=== PATIENT | female | born 1940 | race Caucasian/White ===

== ENCOUNTER 2019-10-31 11:21 | Day surgery (SDC) | payer MEDICARE ==
[~2019-10-31] VITALS: Ht 154.9 cm; Wt 56.3 kg
[~2019-10-31 11:21] MED LIST: FENTANYL PF 100 MCG/2ML ONE; FLUMAZENIL 0.1 MG/1 ML, 5ML ONE; HEPARIN 1,000 UNITS/ML, 10ML ONE; MIDAZOLAM 1 MG/ML, 5ML ONE; NALOXONE 1 MG/ML, 2ML ONE; PROTAMINE SULFATE 10 MG/ML, 25ML ONE; hydrALAzine 20 MG/ML, 1ML ONE
[2019-10-31 11:50] VITALS: BP 102/69
[2019-10-31] MEDS ORDERED: SODIUM CHLORIDE 0.9% 1,000 ML IV SCH ×3 (11:57→15:14)
[2019-10-31] MEDS ORDERED: VISIPAQUE 270 MG/ML, 50ML BOTTLE ONE (12:00)
[2019-10-31 12:21] LABS: BASOPHILS # (AUTO) 0.03 x10^3/uL (0-0.1); BASOPHILS % (AUTO) 0 % (0-1); EOSINOPHILS # (AUTO) 0.42 x10^3/uL (0-0.4); EOSINOPHILS % (AUTO) 4 % (1-7); LYMPHOCYTES # (AUTO) 1.54 x10^3/uL (1-3.4); LYMPHOCYTES % (AUTO) 14 % (22-44); MD NO; MEAN CORPUSCULAR HEMOGLOBIN 30.4 pg (27.0-34.8); MEAN CORPUSCULAR HGB CONC 32.7 g/dL (32.4-35.8); MEAN PLATELET VOLUME 9.3 fL (7.4-10.4); MONOCYTES % (AUTO) 7 % (2-9); NEUTROPHILS # (AUTO) 8.11 x10^3/uL (1.8-6.8); NEUTROPHILS % (AUTO) 75 % (42-75); PLATELET COUNT 228 x10^3/uL (130-400); RED BLOOD COUNT 4.19 x10^6/uL (3.82-5.3); RED CELL DISTRIBUTION WIDTH 16.1 % (9.6-15.2)
[2019-10-31] MEDS ORDERED: PLEASE ENTER HEIGHT AND WEIGHT MC SCH (12:30)
[2019-10-31] MEDS ORDERED: PLEASE ENTER ALLERGIES MC SCH (12:30)
[2019-10-31 12:31] LABS: ANION GAP 3 mmol/L (5-15); CALCIUM 9.4 mg/dL (8.5-10.1); CHLORIDE 98 mmol/L (98-107); CREATININE 0.75 mg/dL (0.55-1.02)
[2019-10-31] MEDS ORDERED: DIGO125T85 PO (12:34)
[2019-10-31] MEDS ORDERED: CALC1CAP8 PO (12:34)
[2019-10-31] MEDS ORDERED: ALBU8.5H8 INH (12:34)
[2019-10-31] MEDS ORDERED: FURO20TA3 PO (12:34)
[2019-10-31] MEDS ORDERED: ACET325T26 PO (12:34)
[2019-10-31] MEDS ORDERED: BUDE10.22 INH (12:34)
[2019-10-31] MEDS ORDERED: ESTR42.58 VG (12:34)
[2019-10-31] MEDS ORDERED: ATOR40TA78 PO (12:34)
[2019-10-31] MEDS ORDERED: MULT-658 PO (12:35)
[2019-10-31] MEDS ORDERED: POTA20TA89 PO (12:35)
[2019-10-31] MEDS ORDERED: FLUT1BLS3 IH (12:35)
[2019-10-31] MEDS ORDERED: VIT1TABL46 PO (12:35)
[2019-10-31] MEDS ORDERED: METO25TA35 PO (12:35)
[2019-10-31] MEDS ORDERED: WARF1TAB74 PO (12:35)
[2019-10-31] MEDS ORDERED: PRAM0.5T5 PO (12:35)
[2019-10-31] MEDS ORDERED: LEVA15HF4 NEB (12:35)
[2019-10-31] MEDS ORDERED: LIDOCAINE 1%, 10ML ONE (12:51)
[2019-10-31] MEDS ORDERED: ACETAMINOPHEN 325 MG TABLET PO PRN (16:30)
== END 2019-10-31 17:50 | disposition home or self-care (01) ==
LOC: SDC 11:21 → UNDOADMOB 15:14 → ORIP 15:14
PROVIDERS: ATTEND Surgery
DX: I70.211 Atherosclerosis of native arteries of extremities with intermittent claudication, right leg (principal); I70.92 Chronic total occlusion of artery of the extremities; E11.9 Type 2 diabetes mellitus without complications; I10 Essential (primary) hypertension; J44.9 Chronic obstructive pulmonary disease, unspecified; E78.5 Hyperlipidemia, unspecified; Z79.01 Long term (current) use of anticoagulants; Z79.899 Other long term (current) drug therapy; Z86.73 Personal history of transient ischemic attack (TIA), and cerebral infarction without residual deficits; Z79.891 Long term (current) use of opiate analgesic; Z87.891 Personal history of nicotine dependence; Z95.5 Presence of coronary angioplasty implant and graft; Z98.890 Other specified postprocedural states; Z99.81 Dependence on supplemental oxygen; Z82.49 Family history of ischemic heart disease and other diseases of the circulatory system; Z80.8 Family history of malignant neoplasm of other organs or systems; Z80.0 Family history of malignant neoplasm of digestive organs
CPT/HCPCS: 36415; 37220; 37225; 37228; 75625; 80048; 85025; 99156; 99157; C1725; C1751; C1769; C1884; C1894; J1644; J2250; J3010; Q9966; 75710; J2720; J0360; J2310

== ENCOUNTER → 2020-12-09 | Outpatient (CLI) | payer MEDICARE ==
[~2020-12-09] MED LIST changes: +ACET325T26 PO; +ALBU8.5H8 INH; +APIX2.5T PO; +ATOR40TA78 PO; +BUDE10.22 INH; +CALC1CAP8 PO; +DIGO125T85 PO; +DILT-8 PO; +ESTR42.58 VG; -FENTANYL PF 100 MCG/2ML ONE; -FLUMAZENIL 0.1 MG/1 ML, 5ML ONE; +FLUT1BLS3 IH; +FURO20TA3 PO; -HEPARIN 1,000 UNITS/ML, 10ML ONE; +LEVA15HF4 NEB; +METF500T PO; +METO25TA35 PO; -MIDAZOLAM 1 MG/ML, 5ML ONE; +MULT-658 PO; -NALOXONE 1 MG/ML, 2ML ONE; +OXYC5TAB98 PO; +POTA20TA89 PO; +PRAM0.5T5 PO; -PROTAMINE SULFATE 10 MG/ML, 25ML ONE; +VIT1TABL46 PO; +WARF1TAB74 PO; -hydrALAzine 20 MG/ML, 1ML ONE
== END | disposition home or self-care (01) ==
LOC: RAD 17:20
PROVIDERS: ATTEND Physician Assistant Medical
DX: T87.89 Other complications of amputation stump (principal); Y83.8 Other surgical procedures as the cause of abnormal reaction of the patient, or of later complication, without mention of misadventure at the time of the procedure; Z89.611 Acquired absence of right leg above knee